=== PATIENT | male | born 1985 | race Caucasian/White ===

== ENCOUNTER 2016-05-19 14:47 | Emergency (ER) | payer MEDICAID ==
[~2016-05-19] VITALS: Wt 51.0 kg
[~2016-05-19 14:47] MED LIST: MECL25TA2 PO; ONDA4TAB35 PO; ZOF8 PO
--- NOTE | 2016-05-19 17:56 | RADRPT ---
PROCEDURE: CT Brain without contrast. CLINICAL INDICATION: Chicken pox TECHNIQUE: A CT of the brain was performed on a multidetector CT scanner utilizing axial imaging f rom the skull base through the vertex without IV contrast. Multiplanar reformatted images were made . Images were reviewed on a PACS workstation. The CTDIvol is 44.84 mGy and the DLP is 720.23 mGycm . COMPARISON: None FINDINGS: There is no intracranial hemorrhage, mass effect, or midline shift. No extra-axial fluid collection is seen. The ventricles and sulci are normal in size and configuration. The density of the brain is normal, and the milian white matter differentiation appears well-preserved. The visualized paranasal sinuses and osseous structures are grossly unremarkable. Incidental note is made of benign pineal c alcifications. IMPRESSION: 1. No evidence of acute intracranial pathology. 2. The brain is normal in appearance. 3. MRI is a more sensitive to subtle cerebritis, infectious, or inflammatory processes as well as a purely subacute ischemic infarction. RPTAT:AAJJ move Physician Felicita Date Time Electronically viewed and signed by Physician Felicita on 05/19/2016 17:56 KRISSY/
[2016-05-19] MEDS ORDERED: DIPHENHYDRAMINE 50 MG INJ IV ONE (18:00)
[2016-05-19] MEDS ORDERED: ACYCLOVIR 1,000 MG in DEXTROSE 5% 100 ML IVPB ONE (18:00)
[2016-05-19] MEDS ORDERED: IBUPROFEN 600 MG TAB PO ONE (18:00)
[2016-05-19] MEDS ORDERED: SOD CHLORIDE 0.9% 1,000 ML IV ONE ×2 (18:00→19:30)
--- NOTE | 2016-05-19 18:18 | ERD ---
ER Documentation Chief Complaint Date/Time DATE: 05/19/16 TIME: 18:15 Chief Complaint RASH ALL OVER X2 DAYS, ITCHING, NO SOB HPI This is a 30-year-old male that presents to the ER with a rash that started 2 days ago. Patient states that 2 days ago he developed a fever and then developed a rash that started on his abdomen and spread outward. Rash is extremely itchy. Patient also complaining of sore throat and body pain. He does not have any sick contacts at home and he does not know anyone who has had this rash. Rash is not painful. Patient denies a cough. Patient was vaccinated as a child however he has never had chickenpox. ROS 12 point review of systems was done, all negative except per HPI. Medications Home Meds Active Scripts Diphenhydramine Hcl* (Benadryl*) 25 Mg Cap, 25 MG PO Q6, #30 CAP Prov:GUILLERMO FREEMAN 05/19/16 Ibuprofen* (Motrin*) 600 Mg Tab, 600 MG PO Q6, #30 TAB Prov:GUILLERMO FREEMAN 05/19/16 Acyclovir* (Zovirax*) 800 Mg Tablet, 800 MG PO TID for 14 Days, TAB Prov:GUILLERMO FREEMAN C 05/19/16 Discontinued Scripts Ondansetron Hcl* (Zofran* ODT) 4 mg -ODT Tab.disper, 4 MG PO Q6 Y for NAUSEA AND /OR VOMITING, #30 TAB Prov:RAFAEL PEÑA MD 03/31/15 Meclizine Hcl* (Antivert*) 25 Mg Tablet, 25 MG PO Q6H Y for DIZZINESS, #20 TAB Prov:REMINGTON EVANGELISTA MD 01/08/15 Ondansetron Hcl* (Zofran* ODT) 8 mg -ODT Tab.disper, 8 MG PO Q6 Y for NAUSEA AND /OR VOMITING, #10 TAB Prov:REMINGTON EVANGELISTA MD 01/08/15 Allergies Allergies: Coded Allergies: No Known Allergy (Unverified , 05/19/16) PMhx/Soc Medical and Surgical Hx: pt denies Medical Hx, pt denies Surgical Hx Hx Alcohol Use: No Hx Substance Use: No Hx Tobacco Use: No Smoking Status: Never smoker Physical Exam Vitals Vital Signs Date Time Temp Pulse Resp B/P Pulse Ox O2 Delivery O2 Flow Rate FiO2 05/19/16 19:00 101.5 92 22 117/75 99 Room Air 05/19/16 14:54 99.2 92 17 124/69 100 Physical Exam GENERAL: The patient is well developed and appropriate for usual state of health , in no apparent distress. HEENT: Atraumatic. conjunctivi is clear, no icterus. there are vesicular lesions in the oropharynx. no tonsillar exudates, some tonsillar erythema. CHEST: Clear to auscultation bilaterally. There are no rales, wheezes or rhonchi. HEART: Regular rate and rhythm. No murmurs, clicks, rubs or gallops. EXTREMITIES: Equal pulses bilaterally. There is no peripheral clubbing, cyanosis or edema. No focal swelling or erythema. Full range of motion. Grossly neurovascularly intact. NEURO: Alert and oriented. Cranial nerves II through XII are intact. Motor strength in all 4 extremities with 5/5 strength. Sensation grossly intact. Normal speech and gait. SKIN: There are vesicular lesions on patient's body, due on the vijay petal appearance. There is also scabs and lesions that are starting. no jaundice Result Diagram: 05/19/160 05/19/161809 Results 24 hrs Laboratory Tests Test 05/19/16 18:10 Alanine Aminotransferase (ALT/SGPT) 139IU/L Albumin 4.1g/dl Albumin/Globulin Ratio 1.17 Alkaline Phosphatase 89IU/L Anion Gap 17 Aspartate Amino Transf (AST/SGOT) 172IU/L Basophils # 0.010^3/ul Basophils % 0.0% Blood Urea Nitrogen 10mg/dl Calcium Level 8.9mg/dl Carbon Dioxide Level 31mmol/L Chloride Level 97mmol/L Creatinine 0.72mg/dl Direct Bilirubin 0.00mg/dl Eosinophils # 0.010^3/ul Eosinophils % 0.0% Globulin 3.50g/dl Glucose Level 102mg/dl Hematocrit 46.9% Hemoglobin 16.0g/dl Indirect Bilirubin 0.5mg/dl Lymphocytes # 1.610^3/ul Lymphocytes % 30.0% Mean Corpuscular Hemoglobin 29.9pg Mean Corpuscular Hemoglobin Concent 34.1g/dl Mean Corpuscular Volume 87.5fl Mean Platelet Volume 8.2fl Monocytes # 0.710^3/ul Monocytes % 13.0% Neutrophils # 2.910^3/ul Neutrophils % 53.0% Nucleated Red Blood Cells # 0.010^3/ul Nucleated Red Blood Cells % 0.0/100WBC Platelet Count 07026^3/UL Platelet Estimate PLT APPEAR ADEQUATE Potassium Level 3.9mmol/L Red Blood Count 5.3610^6/ul Red Cell Distribution Width 12.8% Sodium Level 141mmol/L Total Bilirubin 0.5mg/dl Total Protein 7.6g/dl Urine Bacteria FEW Urine Bilirubin NEGATIVE Urine Clarity CLEAR Urine Color LT. YELLOW Urine Epithelial Cells RARE Urine Glucose NEGATIVE% Urine Hemoglobin TRACE Urine Ketones 40 Urine Leukocyte Esterase NEGATIVE Urine Microscopic RBC 0-2/HPF Urine Microscopic WBC NONE SEEN/HPF Urine Mucus FEW Urine Nitrite NEGATIVE Urine Specific Holly 1.025 Urine Total Protein TRACE Urine Urobilinogen 0.2 E.U./dL Urine pH 5.5 White Blood Count 5.410^3/ul Current Medications Medications (Trade) Dose Ordered Sig/Norma Route PRN Reason Start Time Stop Time Status Last Admin Dose Admin Acyclovir/Dextrose (Zovirax/D5W) 100 ml @ 100 mls/hr ONCE ONCE IVPB 05/19/16 18:00 05/19/16 18:59 DC 05/19/16 18:11 Ibuprofen (Motrin) 600 mg ONCE ONCE PO 05/19/16 18:00 05/19/16 18:01 DC 05/19/16 18:11 Diphenhydramine HCl 25 mg 25 mg ONCE ONCE IV 05/19/16 18:00 05/19/16 18:01 DC 05/19/16 18:11 Sodium Chloride (NS) 1,000 ml @ 1,000 mls/hr Q1H ONCE IV 05/19/16 18:00 05/19/16 18:59 DC 05/19/16 18:11 Acetaminophen 1000 mg 1,000 mg ONCE STAT PO 05/19/16 19:22 05/19/16 19:26 DC Sodium Chloride (NS) 1,000 ml @ 1,000 mls/hr Q1H ONCE IV 05/19/16 19:30 05/19/16 20:29 Procedures/MDM Differential Diagnosis: dermatitis, allergic urticaria, viral exanthem, insect bite, fungal infection ,viral exanthem, hand foot mouth disease, , impetigo, cellulitis, abscess, eleonora dorothy syndrome, meningocemia, necrotizing fasciitis, myositis, chicken pox. This patient was examined by myself and by Dr. Boateng. Patient appears to have chickenpox. Dr. Boateng guided me in the management of this patient. CT scan was negative for any intracranial involvement. Patient's liver enzymes were slightly elevated, however patient is well appearing and does not have any signs or symptoms of hepatitis or severe liver damage. There is no icterus or jaundice. Patient became febrile in the ER and his fever was controlled. Patient is stable enough to be sent home with Acyclovir, benadryl, ibuprofen. Patient needs to f.u with his PCP in 1-2 days and REPEAT his labwork. I shared my medical decision making with the patient, he understands and agrees with the plan. Departure Diagnosis: Primary Impression: Chicken pox Condition: Stable GUILLERMO FREEMAN May 19, 2016 18:18
[2016-05-19 18:25] LABS: ADD UMIC YES; URINE BILIRUBIN (Dip) NEGATIVE (NEGATIVE); URINE BLOOD (Dip) TRACE (NEGATIVE); URINE COLOR LT. YELLOW (YELLOW); URINE GLUCOSE (Dip) NEGATIVE (NEGATIVE); URINE KETONES (Dip) 40 (NEGATIVE); URINE LEUKOCYTE ESTERASE (Dip) NEGATIVE (NEGATIVE); URINE NITRITE (Dip) NEGATIVE (NEGATIVE); URINE TOTAL PROTEIN (Dip) TRACE (NEGATIVE); URINE UROBILINOGEN (Dip) 0.2 E.U./dL (0.1-1.0)
[2016-05-19 18:26] LABS: HEMATOCRIT 46.9 % (42.0-52.0); MEAN CORPUSCULAR HEMOGLOBIN 29.9 pg (29.0-33.0); MEAN CORPUSCULAR HGB CONC 34.1 g/dl (32.0-37.0); MEAN CORPUSCULAR VOLUME 87.5 fl (82.0-101.0); MEAN PLATELET VOLUME 8.2 fl (7.4-10.4); PLATELET COUNT 131 10^3/UL (140-440); RED BLOOD COUNT 5.36 10^6/ul (4.70-6.10); RED CELL DISTRIBUTION WIDTH 12.8 % (11.5-14.5); UNCORRECTED WBC 5.4 10^3/ul (4.8-10.8); WHITE BLOOD COUNT 5.4 10^3/ul (4.8-10.8)
[2016-05-19 18:33] LABS: BACTERIA,URINE FEW; MUCUS,URINE FEW; URINE RBCS 0-2 /HPF (0)
[2016-05-19 18:36] LABS: CONDITION 1; LH ANALYZER COMMENTS 1
[2016-05-19 18:39] LABS: ALBUMIN 4.1 g/dl (3.3-4.9); POTASSIUM 3.9 mmol/L (3.5-5.1)
[2016-05-19 18:41] LABS: BILIRUBIN,INDIRECT 0.5 mg/dl (0-1.1); BILIRUBIN,TOTAL 0.5 mg/dl (0.2-1.3); CREATININE 0.72 mg/dl (0.61-1.24)
[2016-05-19 18:42] LABS: ALBUMIN/GLOBULIN RATIO 1.17; CALCIUM 8.9 mg/dl (8.4-10.2); TOTAL PROTEIN 7.6 g/dl (6.1-8.1)
[2016-05-19 19:03] LABS: LYMPHOCYTES # 1.6 10^3/ul (0.8-2.9); MONOCYTE # 0.7 10^3/ul (0.3-0.9); NEUTROPHIL # 2.9 10^3/ul (1.6-7.5)
[2016-05-19 19:04] LABS: PLATELET ESTIMATE PLT APPEAR ADEQUATE
[2016-05-19] MEDS ORDERED: ACETAMINOPHEN 500 MG TAB PO STA (19:22)
[2016-05-19] MEDS ORDERED: IBUP-1542 PO (19:23)
[2016-05-19] MEDS ORDERED: ACYC800T57 PO (19:23)
[2016-05-19] MEDS ORDERED: BEN25 PO (19:23)
[2016-05-19 20:18] VITALS: BP 125/76; PULSE 71; RESP 22; TEMP 100.5
== END 2016-05-19 20:21 | disposition home or self-care (01) ==
LOC: FTE 14:47 → E/R 20:21
DX: B01.9 Varicella without complication (principal); R40.2142 Coma scale, eyes open, spontaneous, at arrival to emergency department; R40.2362 Coma scale, best motor response, obeys commands, at arrival to emergency department; R40.2252 Coma scale, best verbal response, oriented, at arrival to emergency department
CPT/HCPCS: 36415; 70450; 80053; 81001; 85025; 96361; 96365; 96375; J0133; J1200; J7030; Z7502; Z7610; 81003

== ENCOUNTER 2016-12-12 13:03 | Emergency (ER) | payer SELFPAY ==
[~2016-12-12] VITALS: Ht 165.1 cm; Wt 50.0 kg
[~2016-12-12 13:03] MED LIST changes: +ACYC800T57 PO; +BEN25 PO; +IBUP-1542 PO; -MECL25TA2 PO; -ONDA4TAB35 PO; -ZOF8 PO
[2016-12-12 13:09] VITALS: Ht 165.1 cm; Wt 50.0 kg
[2016-12-12 14:23] LABS: BASOPHIL # 0.1 10^3/ul (0.0-0.1); BASOPHILS % 0.6 % (0.0-2.0); EOSINOPHILS % 0.2 % (0.0-7.0); HEMATOCRIT 41.4 % (42.0-52.0); HEMOGLOBIN 14.4 g/dl (14.0-18.0); LYMPHOCYTES % 23.8 % (15.0-51.0); MEAN CORPUSCULAR HGB CONC 34.8 g/dl (32.0-37.0); MEAN CORPUSCULAR VOLUME 86.3 fl (82.0-101.0); MEAN PLATELET VOLUME 9.1 fl (7.4-10.4); MONOCYTE # 0.4 10^3/ul (0.3-0.9); MONOCYTES % 4.6 % (0.0-11.0); NEUTROPHILS % 70.6 % (39.0-77.0); PLATELET COUNT 305 10^3/UL (140-415); RED CELL DISTRIBUTION WIDTH 12.1 % (11.5-14.5); WHITE BLOOD COUNT 8.4 10^3/ul (4.8-10.8)
[2016-12-12 14:39] LABS: INR 0.92; PROTIME 12.4 Sec (12.2-14.2)
[2016-12-12 14:40] LABS: PARTIAL THROMBOPLASTIN TIME 26.7 Sec (25.0-35.0)
--- NOTE | 2016-12-12 14:40 | RADRPT ---
PROCEDURE: Chest Radiograph. CLINICAL INDICATION: Chest pain TECHNIQUE: Single frontal chest radiograph. COMPARISON: None available FINDINGS: The cardiomediastinal silhouette is within normal limits. No infiltrate or effusion is seen. Th e bones are intact. IMPRESSION: 1. Unremarkable chest radiograph. RPTAT: AA .Deshaun Chavez MD, MD Date Time Electronically viewed and signed by .Deshaun Chavez MD, on 12/12/2016 14:40 .B/
[2016-12-12 14:41] LABS: ANION GAP 20 (8-16); BLOOD UREA NITROGEN 13 mg/dl (7-20); CALCIUM 9.2 mg/dl (8.4-10.2); CARBON DIOXIDE 29 mmol/L (21-31); CHLORIDE 98 mmol/L (97-110); CREATININE 0.76 mg/dl (0.61-1.24); GLUCOSE 97 mg/dl (70-220); POTASSIUM 4.4 mmol/L (3.5-5.1); SODIUM 143 mmol/L (135-144)
[2016-12-12 14:58] LABS: TROPONIN-I < 0.012 ng/ml (0.00-0.12)
--- NOTE | 2016-12-12 15:01 | ERD ---
ER Documentation Chief Complaint Date/Time DATE: 12/12/16 TIME: 14:58 Chief Complaint Complains of chest pain and sob HPI This is a 31-year-old female presents to the ER with chest pain that occurred 3 hours ago while he was on his lunch break. Patient states that he began to feel sharp stabbing pain to the left side of his chest. Pain has been constant over the last 3 hours. Pain is nonradiating and nothing alleviates it. About an hour ago patient felt short of breath. Patient states he had to sit down because he was so short of breath. Patient denies any fevers or chills. He denies any recent cough or cold symptoms. Patient also admits to palpitations at the time of pain. She states that his grandmother had a heart attack at 37 years old. ROS 12 point review of systems was done all negative except per HPI. Medications Home Meds Active Scripts Ibuprofen* (Motrin*) 600 Mg Tab, 600 MG PO Q6, #30 TAB Prov:PETE,GUILLERMO C 12/12/16 Diphenhydramine Hcl* (Benadryl*) 25 Mg Cap, 25 MG PO Q6, #30 CAP Prov:PETE,GUILLERMO C 05/19/16 Ibuprofen* (Motrin*) 600 Mg Tab, 600 MG PO Q6, #30 TAB Prov:PETEGUILLERMO C 05/19/16 Acyclovir* (Zovirax*) 800 Mg Tablet, 800 MG PO TID for 14 Days, TAB Prov:PETE,GUILLERMO C 05/19/16 Allergies Allergies: Coded Allergies: No Known Allergy (Unverified , 05/19/16) PMhx/Soc History of Surgery: No Anesthesia Reaction: No Hx Neurological Disorder: No Hx Respiratory Disorders: No Hx Cardiac Disorders: No Hx Psychiatric Problems: No Hx Miscellaneous Medical Probl: No Hx Alcohol Use: No Hx Substance Use: No Hx Tobacco Use: No Physical Exam Vitals Vital Signs Date Time Temp Pulse Resp B/P Pulse Ox O2 Delivery O2 Flow Rate FiO2 12/12/16 16:16 98.1 68 20 118/65 100 Room Air 12/12/16 13:09 98.4 77 20 114/61 100 Physical Exam GENERAL: The patient is well developed and appropriate for usual state of health , in no apparent distress. HEENT: Atraumatic. CHEST: Clear to auscultation bilaterally. There are no rales, wheezes or rhonchi. HEART: Regular rate and rhythm. No murmurs, clicks, rubs or gallops. Patient is tender to palpation along the entire chest wall. ABDOMEN: Soft, nontender and nondistended. Good bowel sounds. No rebound or guarding. No gross peritonitis. No gross organomegaly or masses. No White sign or McBurney point tenderness. No pulsatile masses. BACK: No midline or flank tenderness. EXTREMITIES: Equal pulses bilaterally. There is no peripheral clubbing, cyanosis or edema. No focal swelling or erythema. Full range of motion. Grossly neurovascularly intact. NEURO: Alert and oriented. Cranial nerves II through XII are intact. Motor strength in all 4 extremities with 5/5 strength. Sensation grossly intact. Normal speech and gait. SKIN: There is no apparent rash or petechia. The skin is warm and dry. Result Diagram: 12/12/16 1405 12/12/16 1405 Results 24 hrs Laboratory Tests Test 12/12/16 14:05 White Blood Count 8.410^3/ul Red Blood Count 4.8010^6/ul Hemoglobin 14.4g/dl Hematocrit 41.4% Mean Corpuscular Volume 86.3fl Mean Corpuscular Hemoglobin 30.0pg Mean Corpuscular Hemoglobin Concent 34.8g/dl Red Cell Distribution Width 12.1% Platelet Count 59586^3/UL Mean Platelet Volume 9.1fl Neutrophils % 70.6% Lymphocytes % 23.8% Monocytes % 4.6% Eosinophils % 0.2% Basophils % 0.6% Nucleated Red Blood Cells % 0.0/100WBC Neutrophils # 6.010^3/ul Lymphocytes # 2.010^3/ul Monocytes # 0.410^3/ul Eosinophils # 0.010^3/ul Basophils # 0.110^3/ul Nucleated Red Blood Cells # 0.010^3/ul Prothrombin Time 12.4Sec Prothrombin Time Ratio 1.0 INR International Normalized Ratio 0.92 Activated Partial Thromboplast Time 26.7Sec Sodium Level 143mmol/L Potassium Level 4.4mmol/L Chloride Level 98mmol/L Carbon Dioxide Level 29mmol/L Anion Gap 20 Blood Urea Nitrogen 13mg/dl Creatinine 0.76mg/dl Glucose Level 97mg/dl Calcium Level 9.2mg/dl Troponin I < 0.012ng/ml [id number] [address] [address] Radiology Main Line: [phone] DIAGNOSTIC IMAGING REPORT Patient: WHITNEY SALEEM : 1985 Age: 31 Sex: M MR #: [id number] DOS: 12/12/16 1359 Ordering MD: GUILLERMO FREEMAN. PA-C Location: [facility] Room/Bed: PROCEDURE: Chest Radiograph. CLINICAL INDICATION: Chest pain TECHNIQUE: Single frontal chest radiograph. COMPARISON: None available FINDINGS: The cardiomediastinal silhouette is within normal limits. No infiltrate or effusion is seen. The bones are intact. IMPRESSION: 1. Unremarkable chest radiograph. RPTAT: AA .Deshaun Chavez MD, MD Date Time Electronically viewed and signed by .Deshaun Chavez MD, on 2016 14:40 .B/ CC: GUILLERMO FREEMAN Procedures/MDM EKG was done and read by Dr. Buckner 72bpm no ST elevation or twave inversions. This EKG was read by Dr. Buckner .Differential diagnosis includes but is not limited to; STEMI, dissection, pneumothorax, PE, esophageal rupture, tamponade, pneumonia, pericarditis, GERD, musculoskeletal, endocarditis, anxiety. This is a 31-year-old male presents to the ER with chest pain that started 3 hours ago. Chest pain is reproducible on physical examination suspicion for acute NM is low. Patient's heart score is 0. At this time suspicion for acute cardiac etiology is extremely low. Patient PERC criteria 0. Patient will be sent home with ibuprofen. He is to follow-up with his primary care doctor within 1-2 days return to ER sooner if symptoms worsen. My medical decision making shared with the patient understands and agrees with plan. Departure Diagnosis: Primary Impression: Chest pain Condition: Stable GUILLERMO FREEMAN Dec 12, 2016 15:01
[2016-12-12] MEDS ORDERED: IBUP-1542 PO (16:06)
[2016-12-12 16:16] VITALS: BP 118/65; PULSE 68; RESP 20; TEMP 98.1
== END 2016-12-12 16:17 | disposition home or self-care (01) ==
LOC: FTE 13:03
DX: R07.9 Chest pain, unspecified (principal)
CPT/HCPCS: 36415; 71010; 80048; 84484; 85025; 85610; 85730